=== PATIENT | female | born 1970 | race Caucasian/White ===

== ENCOUNTER 2017-07-04 15:02 | Inpatient (IN) | payer MEDICARE, OTHER ==
[~2017-07-04] VITALS: Ht 172.7 cm; Wt 77.1 kg
--- NOTE | 2017-07-04 15:07 | NUR ---
BBRA 41 FROM HOME FOR X2 WITNESSED SYNCOPAL EPISODES TODAY PER PT "THIS HAPPENS OFTEN". HX BRAIN TUMOR
--- NOTE | 2017-07-04 15:31 | NUR ---
ACCUCHECK Chris DAVIDSON AWARE
--- NOTE | 2017-07-04 15:38 | NUR ---
[employer] SALES ENGINEER AT BEDSIDE
[2017-07-04 16:08] LABS: BASOPHILS % (AUTO) 0.4 % (0.0-2.0); EOSINOPHILS # (AUTO) 0.2 /CMM (0.0-0.7); EOSINOPHILS % (AUTO) 2.5 % (0.0-6.0); HEMATOCRIT 46 % (33-45); MEAN CORPUSCULAR HEMOGLOBIN 29 PG (26.0-33.0); MEAN CORPUSCULAR HGB CONC 33 g/dl (31.0-36.0); MEAN CORPUSCULAR VOLUME 87 fL (82-100); MONOCYTES # (AUTO) 0.8 /CMM (0.1-1.30); MONOCYTES % (AUTO) 10.8 % (2.0-12.0); NEUTROPHILS # (AUTO) 4.2 /CMM (1.8-8.9); NEUTROPHILS % (AUTO) 58.3 % (43.0-81.0); PLATELET COUNT (AUTO) 180 /CMM (150-450); RED BLOOD CELL COUNT(AUTO) 5.21 MIL/uL (4.0-5.2); WHITE BLOOD COUNT (AUTO) 7.2 K/uL (4.3-11.0)
--- NOTE | 2017-07-04 16:10 | NUR ---
PT TAKEN TO CT
[2017-07-04 16:12] LABS: CALCIUM, SERUM 9.1 mg/dL (8.5-10.1); CARBON DIOXIDE 20 mmol/L (21-32); CHLORIDE 112 mmol/L (98-107); CREATININE 1.1 mg/dL (0.6-1.3); GLUCOSE 142 mg/dL (74-106); POTASSIUM 4.1 mmol/L (3.5-5.1); SODIUM SERUM 143 mmol/L (136-145); UREA NITROGEN, BLOOD 19 mg/dL (7-18)
[2017-07-04 16:16] LABS: INR 0.91 (0.87-1.13); PROTHROMBIN TIME 9.5 SECS (9.5-12.7)
[2017-07-04 16:19] LABS: ALANINE AMINOTRANSFERASE 30 U/L (12-78); ALBUMIN 3.2 g/dL (3.4-5.0); ALKALINE PHOSPHATASE 75 U/L (46-116); ASPARTATE AMINOTRANSFERASE 21 U/L (15-37); BILIRUBIN,DIRECT 0.1 mg/dL (0.0-0.2); BILIRUBIN,TOTAL 0.3 mg/dL (0.2-1.0); SALICYLATE 3.8 mg/dL (2.8-20.0); TOTAL PROTEIN, SERUM 6.4 g/dL (6.4-8.2)
[2017-07-04 16:20] LABS: TROPONIN I < 0.017 ng/mL (0.00-0.056)
[2017-07-04 16:21] LABS: ACETAMINOPHEN 0 ug/ml (10-30)
[2017-07-04 16:22] LABS: ALCOHOL, BLOOD < 3 mg/dL (0-0)
--- NOTE | 2017-07-04 16:46 | NUR ---
URINE SAMPLE COLLECTED SENT TO LAB
[2017-07-04] MEDS ORDERED: CLON2TAB4 PO (17:19)
[2017-07-04] MEDS ORDERED: ACET500C43 PO (17:19)
[2017-07-04] MEDS ORDERED: DEXL60CA3 PO (17:19)
[2017-07-04] MEDS ORDERED: ROPI1TAB2 PO (17:19)
[2017-07-04] MEDS ORDERED: LAMO150T33 PO (17:19)
[2017-07-04] MEDS ORDERED: PREG300C PO (17:19)
[2017-07-04] MEDS ORDERED: DIAZ5TAB4 PO (17:19)
[2017-07-04] MEDS ORDERED: AZEL137S7 NS (17:19)
[2017-07-04] MEDS ORDERED: FLUT16SP16 NS (17:19)
[2017-07-04] MEDS ORDERED: BACL20TA PO (17:19)
[2017-07-04] MEDS ORDERED: NORE1TAB21 PO (17:19)
[2017-07-04 17:25] LABS: APPEARANCE,URINE CLOUDY (CLEAR); BILIRUBIN,URINE NEGATIVE (NEGATIVE); BLOOD, URINE NEGATIVE Ery/uL (NEGATIVE); COLOR,URINE YELLOW (YELLOW); KETONES,URINE NEGATIVE (NEGATIVE); PH,URINE 7.5 (5.0-8.0); PROTEIN,URINE TRACE mg/dl (NEGATIVE); UGLUCOSE NEGATIVE (NEGATIVE)
[2017-07-04 17:26] LABS: LEUKOCYTE ESTERASE ,URINE NEGATIVE (NEGATIVE); NITRITE, URINE NEGATIVE (NEGATIVE); UROBILINOGEN,URINE NORMAL EU/dL (0.2)
[2017-07-04] MEDS ORDERED: SOMA5PEN2 SQ (17:27)
[2017-07-04] MEDS ORDERED: OXYM10TA10 PO (17:27)
[2017-07-04] MEDS ORDERED: FENT1PAT2 TD (17:27)
[2017-07-04] MEDS ORDERED: HYDR5TAB2 PO (17:27)
[2017-07-04 17:36] LABS: BACTERIA,URINE Rare /HPF (None Seen); RBC,URINE 0-2 /HPF (0-2); WBC,URINE 0-2 /HPF (0-3)
[2017-07-04 17:37] LABS: SQUAMOUS EPITHELIAL CELL,UR Rare /HPF (None Seen); URINE AMORPHOUS PHOSPHATES Many /HPF (None Seen)
[2017-07-04] MEDS ORDERED: FENT1PAT8 TD (17:52)
[2017-07-04] MEDS ORDERED: NORE1TAB23 PO (17:56)
[2017-07-04] MEDS ORDERED: AUBAGIO PO (17:59)
--- NOTE | 2017-07-04 18:25 | NUR ---
GAVE REPORT TO RINA WERNER TELE DX SYNCOPE ROOM 311-[address] COX ADMITTING MD
[2017-07-04 18:45] VITALS: BP 141/85
--- NOTE | 2017-07-04 18:47 | NUR ---
- Received patient from ER via gurney, fully awake, a little wobbly upon ambulation , patient walked to bathroom, claimed to have generalized pain of 5/10, with Fentanyl patch applied yesterday 07/03/17. Report given to Noc SHIFT.
--- NOTE | 2017-07-04 19:30 | NUR ---
LOOM SETTER ADMITTING NOTES: ADMITTED A 47 YO FEMALE PATIENT WHO WAS SEEN AT ER AFTER HAVING SYNCOPE AND FALL AT HOME. PATIENT WAS BROUGHT TO TELE FLOOR VIA GURHELENA, AOX4, ON ROOM AIR, BREATHING EVEN AND UNLABORED. BREATH SOUNDS CLEAR TO AUSCULTATION. PATIENT APPEARS TO BE IN NO DISTRESS, BUT STATES THAT SHE IS HAVING SEVERE PAIN SCALED AT 9 TO 10/10 OVER HER NECK AREA, AND STATES THAT SINCE SHE HAS MS, SHE HAS BEEN ON PAIN MANAGEMENT FOR 14 YRS, AND IS ASKING FOR IV FENTANYL. PATIENT HAS FENTANYL PATCH 50 MCG ON HER R UPPER ABDOMEN, WHICH SHE SAID SHE PLACED LAST 07/03/2017 AT 1700 PM. PIV OVER L WRIST G20 INTACT AND PATENT TO FLUSH. PROVIDED FOR COMFORT AND SAFETY. ADMITTING CARE DONE. PROVIDED FOR COMFORT AND SAFETY. WILL CONT TO MONITOR.
[2017-07-04 20:00] VITALS: BP_SYST 138; BP_SYST 141; BP_DIAS 82; BP_DIAS 85
--- NOTE | 2017-07-04 20:03 | NUR ---
RN NOTES: PATIENT COMPLAINED OF 7/10 PAIN IN HER NECK, DESCRIBED THROBBING. ADMINISTERED NORCO 5-325 MG PO. WILL CONT TO MONITOR.
--- NOTE | 2017-07-04 22:00 | NUR ---
RN NOTES: PATIENT APPEARS UPSET AND COMPLAINS THAT HER PAIN MEDICATIONS ARE NOT WORKING FOR HER, AND IS ASKING FOR HER OTHER MEDICATIONS, ALL OF WHICH ARE SCHEDULED FOR TOMORROW AM. CALLED DR STYLES TO ASK ABOUT ADDITIONAL PAIN MEDS. DR STYLES ORDERED MORPHINE 2 MG IV PRN Q 6 HRS. OTHER MEDS SUCH HYDROCORTISONE 10 MG BID, BACLOFEN 20 MG TID, LYRICA 300 MG ALSO ASKED IF OK TO START AT THIS TIME. PER DR STYLES, OK TO GIVE FIRST DOSES NOW. PATIENT ALSO KEEPS ASKING FOR CLONAZEPAM TO BE ADMINISTERED TONIGHT, HOWEVER, PATIENT HAS DIAZEPAM ON ORDER FOR TONIGHT, PER DR STYLES, DO NOT GIVE IT TONIGHT. NOTED AND CARRIED OUT.
--- NOTE | 2017-07-04 22:38 | NUR ---
RN NOTES: PATIENT COMPLAINED OF 9-10 PAIN OVER NECK AREA, SAYING THAT THE NORCO DOES NOT WORK. ADMINISTERED MORPHINE 2 MG IV PRN. WILL CONT TO MONITOR.
--- NOTE | 2017-07-04 22:40 | NUR ---
RN NOTES: PATIENT APPEARS UPSET, SAYING THAT SHE WANTS TO SPEAK TO DR STYLES, THAT SHE NEEDS MORE DOSAGE OF MORPHINE. ALSO NOTED THAT HER SKIN OVER IV SITE HAD SOME SLIGHT RASH, WHICH SHE ATTRIBUTED TO MORPHINE ALLERGY, BUT IT WAS NEGATIVE FOR PRURITUS. SPOKE TO DR STYLES, IV BENADRYL 25 MG ONE DOSE WAS ORDERED. FOR ADDITIONAL DOSE OF MORPHINE, PER DR STYLES, SHE WILL NOT CHANGE THE PAIN MEDS ORDERED.
--- NOTE | 2017-07-04 23:30 | NUR ---
RN NOTES: ACCDG TO PATIENT, SHE ALSO TAKES DOCUSATE 250 MG PO AT HOME, AND NEEDS IT TONIGHT. ORDER GIVEN BY DR STYLES. MEDICATION OVERRIDDEN TONIGHT PER PATIENT REQUEST.
[2017-07-05] VITALS (7 sets, daily range): BP systolic 122–135; BP diastolic 61–88
--- NOTE | 2017-07-05 02:49 | NUR ---
RN NOTES: PATIENT COMPLAINED OF 7/10 PAIN OVER NECK AREA, ADMINISTERED NORCO 5-325 MG PO. WILL CONT TO MONITOR.
[2017-07-05] MEDS ORDERED: BACL20TA PO (04:12)
[2017-07-05] MEDS ORDERED: HYDR10TA PO (04:12)
[2017-07-05] MEDS ORDERED: FENT1PAT7 TP (04:32)
--- NOTE | 2017-07-05 07:00 | NUR ---
RN NOTES: PATIENT IN BED, AOX4, ON ROOM AIR, BREATHING EVEN AND UNLABORED. ON TELE MONITORING WITH SINUS RHYTHM AT RATE OF 60S. PIV OVER LEFT WRIST G20 INTACT AND INFUSING WELL WITH NS RUNNING AT 75 ML/HR. DUE MEDS GIVEN. PROVIDED FOR COMFORT AND SAFETY. BED IN LOWEST NAD LOCKED POSITION, SIDERAILS UPX3. ENDORSED TO AM RN FOR SAM.
[2017-07-05 07:11] LABS: BASOPHILS % (AUTO) 0.5 % (0.0-2.0); EOSINOPHILS # (AUTO) 0.2 /CMM (0.0-0.7); EOSINOPHILS % (AUTO) 1.6 % (0.0-6.0); HEMATOCRIT 42 % (33-45); HEMOGLOBIN 14.1 g/dL (11.5-14.8); LYMPHOCYTES # (AUTO) 2.3 /CMM (0.8-4.8); LYMPHOCYTES % (AUTO) 22.4 % (20.0-44.0); MEAN CORPUSCULAR HEMOGLOBIN 29 PG (26.0-33.0); MEAN CORPUSCULAR HGB CONC 33 g/dl (31.0-36.0); MEAN CORPUSCULAR VOLUME 87 fL (82-100); MONOCYTES # (AUTO) 1.4 /CMM (0.1-1.30); MONOCYTES % (AUTO) 13.8 % (2.0-12.0); NEUTROPHILS # (AUTO) 6.2 /CMM (1.8-8.9); NEUTROPHILS % (AUTO) 61.7 % (43.0-81.0); PLATELET COUNT (AUTO) 180 /CMM (150-450); RED BLOOD CELL COUNT(AUTO) 4.87 MIL/uL (4.0-5.2); WHITE BLOOD COUNT (AUTO) 10.1 K/uL (4.3-11.0)
[2017-07-05 07:30] LABS: CALCIUM, SERUM 8.2 mg/dL (8.5-10.1); CREATININE 0.9 mg/dL (0.6-1.3); MAGNESIUM 1.7 mg/dL (1.8-2.4); PHOSPHORUS 2.8 mg/dL (2.5-4.9); POTASSIUM 3.6 mmol/L (3.5-5.1)
[2017-07-05 07:42] LABS: THYROID STIMULATING HORMONE 0.212 uIU/mL (0.358-3.74)
--- NOTE | 2017-07-05 08:00 | NUR ---
RN NOTES RECEIVED PT. PT IS STABLE AND IN BED. A/OX4. NO S/S OF DISTRESS OR SOB. PT HAS C/O PAIN. PT IS VISIBLY UPSET, WITH C/O HOSPITAL STAFF. NURSING ADMINISTRATION EXTENSION REQUESTED BY PT. CONTACTED BY PHARMACY REGARDING DOSAGE VERIFICATION FOR 2 HOME MEDICATIONS. WILL F/U WITH PT'S PREFERRED PHARMACY FOR DOSAGE. PT IS ON TELE MONITOR, CURRENTLY SR. IV ACCESS LOCATED ON LEFT WRIST 20 G RUNNING NS AT 75 ML/HR. SAFETY MEASURES IN PLACE, CALL LIGHT WITHIN REACH. WILL CONTINUE TO MONITOR.
--- NOTE | 2017-07-05 19:22 | NUR ---
RN NOTES PT IS IN BED RESTING. NO S/S OF DISTRESS OR SOB. PT HAS HAD C/O PAIN ALL DAY. ATTEMPTED TO CALL DR. CHAPMAN FOR PAIN CONSULT, LEFT A MESSAGE. CALLED DR. HERZOG FOR BREAKTHROUGH PAIN PRN MEDICATION, ONLY ORDER RECEIVED WAS TO GIVE FENTANYL PATCH NOW. PAIN MANAGED WITH AVAILABLE ORDERS. PT IS VISIBILY UNHAPPY WITH PAIN MANAGEMENT ATTEMPTS. SAFETY MEASURES IN PLACE, CALL LIGHT WITHIN REACH, WILL CONTINUE TO MONITOR.
--- NOTE | 2017-07-05 19:30 | NUR ---
RELEASE SPECIALIST NOTE RECEIVED PATIENT AWAKE AND ALERT IN BED. PATIENT HAS 8/10 GENERALIZED PAIN. RELAXATION TECHNIQUES PROVIDED. WILL PROVIDE PAIN MEDICATION ORDERED. IV SITE INTACT WITH NO REDNESS OR INFILTRATION NOTED. SIDE RAILS UP, CALL LIGHT WITHIN REACH. BED LOCKED AND IN LOWEST POSITION. WILL CONTINUE TO MONITOR.
[2017-07-06] VITALS: BP 119/71
[2017-07-06 00:14] VITALS: BP 119/71
[2017-07-06 04:00] VITALS: BP 108/60
[2017-07-06 04:35] VITALS: BP 108/60
--- NOTE | 2017-07-06 06:34 | NUR ---
LEATHER SEASONER NOTE PATIENT SLEEPING COMFORTABLY AT THIS THIS TIME. EVEN AND UNLABORED RESPIRATIONS. NO S/S OF PAIN OR DISCOMFORT. ALL NEEDS MET AND ATTENDED TO. WILL ENDORSE TO DAY SHIFT FOR SAM.
[2017-07-06 07:12] VITALS: BP 115/63
--- NOTE | 2017-07-06 07:15 | NUR ---
GIS ADMINISTRATOR OPENING RECEIVED PATIENT A/OX4 DENIES SOB, DIFFICULTY BREATHING AND STATES CONSTANT PAIN WHICH "DOCTORS DO NOT WANT TO DO ANYTHING ABOUT" NOTIFIED SHE HAS THE PATCH ON FOR PAIN REQUESTED AND PRN NORCO WHICH SHE DOES NOT WANT TO TAKE. PATIENT STATES ITS NOT THE MEDICATIONS SHE WANTS AND NOT ENOUGH. WHEN I WENT INTO THE ROOM PATIENT IS SLEEPING COMFORTABLY WITH NO COMPLICATIONS NOTED. ALL NEEDS IN REACH, DVT PUMPS ATTACHED. PATIENT REPOSITIONED TO COMFORTABLE POSITION ONCE WOKEN UP AND WENT BACK TO RESTING WELL. WILL ROUND Q2H OR LESS PER NEEDS. IVF ATTACHED AND RUNNING ORDERED NO S/S INFILTRATION OR OCCLUSION AT IV SITE.
[2017-07-06 08:00] VITALS: BP 115/63
--- NOTE | 2017-07-06 08:54 | NUR ---
MS RN NOTES PATIENT REFUSING KLONOPIN AT THIS TIME. STATES SHE TAKES 2MG AT NIGHT. NON ADMIN AT THIS TIME FOR AM DOSE WILL NOTIFY MD WITH ROUNDING
--- NOTE | 2017-07-06 11:23 | NUR ---
Social service consult requested by Dr. Snow due to pt. residing alone with son and being a fall risk. SW met with pt. bedside. Pt. is alert and oriented x 4. Pt. appeared disheveled and angry. Pt. stated that she is upset with the doctors not communicating with her and was saying derogatory names towards them. SW provided active listening to pt. and provided emotional support. Pt. resides with her son in their apartment located at [address] [place] [address], [address], [place] [address]. Pt. receives approximately $900 a month in social security disability and will be getting benefits in the next few weeks. Pt. complained that she was not receiving enough pain medication while at this hospital. SW explained to pt. that she is getting the dosage that is prescribed by the physician. Pt. was not happy and stated she has pain specialist Dr. Love that she visits and he has her on a higher dosage. Pt. does receive approximately 100 plus hours of IHSS. Pt. could not remember the actual amount and stated she needs more hours. SW informed pt. to contact her SW at [employer] and request an increase in hours. No other social service needs are required at this time. SW is available if needed.
--- NOTE | 2017-07-06 12:50 | NUR ---
MS BILINGUAL MEDICAL RECEPTIONIST PATIENT LEFT IN STABLE CONDITION NO COMPLICATIONS. IV REMOVED PRESSURE AND DRESSING APPLIED NO BLEEDING NOTED. COMMANDING OFFICER MOTORIZED SQUAD VISITED PATIENT AT BEDSIDE BEFORE DC. PATIENT EDUCATED ON DC AND STATED UNDERSTANDING. MEDICATIONS RETURNED AND ALL BELONGINGS ACCOUNTED FOR. PATIENT STATES SHE WILL F/U WITH ALL OF HER DOCTORS RIZWAN. PATIENT WHEELED DOWN IN WHEELCHAIR WITH VINICIO ZHAO TO PRIVATE CARE FRIEND RENE PICKING UP. PATIENT LEFT IN STABLE CONDITION.
== END 2017-07-06 12:50 | disposition home or self-care (01) | DRG 74 ==
LOC: ER 15:04 → TELE 18:13 → MED 07-06 09:30
DX: G90.8 Other disorders of autonomic nervous system (principal); F11.20 Opioid dependence, uncomplicated; R00.1 Bradycardia, unspecified; G35 Multiple sclerosis; G93.0 Cerebral cysts; G89.29 Other chronic pain
CPT/HCPCS: 36415; 70450-TC; 71010-TC; 80048-TC; 80061-TC; 80076-TC; 80305; 81000-TC; 82962-TC; 83735-TC; 84100-TC; 84443-TC; 84484-TC; 85025-TC; 85730-TC; 87081-TC; 93307-TC; 93880-TC; A4606; G0480; J1200; J1650; J2270; J2405; J3475; J7030; Z7610

== ENCOUNTER → 2023-04-22 | Emergency (ER) | payer MEDICARE, OTHER ==
[~2023-04-22] VITALS: Ht 172.7 cm; Wt 88.5 kg
[~2023-04-22] MED LIST: BACL20TA PO; CEFTRIAXONE 1 G in IV D5W 50 ML IV ONE; CEFTRIAXONE 1GM BAG (ER ONLY) 50 ML IV ONE; CEPH500C2 PO; FLUT16SP16 NS; HYDR5TAB13 PO; IV NS 0.9% 1,000 ML IV ONE; KESIMPTA; LAMO150T6 PO; METH4TAB17 PO; PANT40TA2 PO; PREG300C PO; SOMA5PEN2 SQ; dexaMETHasone SOD PHOSPHATE 10 MG/ML VIAL IV ONE; dexaMETHasone SOD PHOSPHATE 10 MG/ML VIAL ONE; methylPREDNISolone SOD SUCC 125 MG/2ML VIAL IV ONE
--- NOTE | 2023-04-22 13:10 | NUR ---
[id number] HOME C/O GENERALIZED WEAKNESS SINCE WAKING UP THIS MORNING. PT HAS MULTIPLE SCLEROSIS, HAS DIFFICULTY OF WALKING AND OPENNING OF EYES. JUST CAME 6 DAYS AGO FROM [facility] DUE TO SAME SYMPTOMS. CLAIMS SHE HAS APPOINMENT TO HER [facility] TOMORROW.
--- NOTE | 2023-04-22 14:00 | NUR ---
urine collected , sent to lab
--- NOTE | 2023-04-22 14:12 | NUR ---
dr GARCIA AT BEDSIDE FOR EVAL.
[2023-04-22 14:26] LABS: BASOPHILS % (AUTO) 0.1 % (0.0-2.0); EOSINOPHILS % (AUTO) 1.3 % (0.0-6.0); HEMATOCRIT 46 % (33-45); HEMOGLOBIN 14.9 g/dL (11.5-14.8); LYMPHOCYTES # (AUTO) 2.1 K/uL (0.8-4.8); LYMPHOCYTES % (AUTO) 18.8 % (20.0-44.0); MEAN CORPUSCULAR HGB CONC 33 g/dl (31.0-36.0); MEAN CORPUSCULAR VOLUME 86 fL (82-100); MONOCYTES # (AUTO) 0.8 K/uL (0.1-1.30); MONOCYTES % (AUTO) 7.4 % (2.0-12.0); NEUTROPHILS # (AUTO) 8.1 K/uL (1.8-8.9); NEUTROPHILS % (AUTO) 72.4 % (43.0-81.0); PLATELET COUNT (AUTO) 236 K/uL (150-450); RED BLOOD CELL COUNT(AUTO) 5.34 MIL/uL (4.0-5.2); WHITE BLOOD COUNT (AUTO) 11.2 K/uL (4.3-11.0)
--- NOTE | 2023-04-22 14:38 | NUR ---
22g iv inserted at rt hand.
[2023-04-22 14:39] LABS: CALCIUM, SERUM 8.7 mg/dL (8.5-10.1); CARBON DIOXIDE 27 mmol/L (21-32); CHLORIDE 108 mmol/L (98-107); GLUCOSE 106 mg/dL (74-106); POTASSIUM 4.4 mmol/L (3.5-5.1); SODIUM SERUM 140 mmol/L (136-145); UREA NITROGEN, BLOOD 24 mg/dL (7-18)
[2023-04-22 14:47] LABS: ALANINE AMINOTRANSFERASE 59 U/L (12-78); ALBUMIN 2.9 g/dL (3.4-5.0); ALKALINE PHOSPHATASE 141 U/L (46-116); ASPARTATE AMINOTRANSFERASE 53 U/L (15-37); BILIRUBIN,DIRECT 0.2 mg/dL (0.0-0.2); BILIRUBIN,TOTAL 0.5 mg/dL (0.2-1.0); TOTAL PROTEIN, SERUM 7.2 g/dL (6.4-8.2)
[2023-04-22 15:04] LABS: BILIRUBIN,URINE NEGATIVE (NEGATIVE); COLOR,URINE YELLOW (YELLOW); LEUKOCYTE ESTERASE ,URINE 1+ (NEGATIVE); NITRITE, URINE NEGATIVE (NEGATIVE); PH,URINE 6.5 (5.0-8.0); PROTEIN,URINE NEGATIVE (NEGATIVE); UGLUCOSE NEGATIVE (NEGATIVE); UROBILINOGEN,URINE 0.2 EU/dL (0.2)
[2023-04-22 15:23] LABS: RBC,URINE 0-2 /HPF (0-2)
[2023-04-22 15:24] LABS: BACTERIA,URINE Few /HPF (None Seen); SQUAMOUS EPITHELIAL CELL,UR Moderate /HPF (None Seen)
--- NOTE | 2023-04-22 16:54 | NUR ---
Patient is resting comfortably in bed with eyes closed. Easily aroused. VSS
--- NOTE | 2023-04-22 17:34 | NUR ---
CALLED [facility] FOR TRANSPORT ETA 20 MINS.
[2023-04-22 18:08] VITALS: BP 145/98; TEMP 98.1
== END | disposition home or self-care (01) ==
LOC: ER 13:44
DX: N39.0 Urinary tract infection, site not specified (principal); R53.1 Weakness; E86.0 Dehydration; E63.9 Nutritional deficiency, unspecified; G35 Multiple sclerosis; I10 Essential (primary) hypertension; E03.9 Hypothyroidism, unspecified; F17.200 Nicotine dependence, unspecified, uncomplicated; Z98.890 Other specified postprocedural states; Z79.899 Other long term (current) drug therapy; Z88.1 Allergy status to other antibiotic agents
CPT/HCPCS: 99285; 96365; 71045; 96361; 96375; 93005 ×2; 85025; 80048; 87086; 80076; 81001; 36415; 84484; 83880; J1100; J0696 ×2; J7060; J7030